=== PATIENT | male | born 1995 | race African-American/Black ===

== ENCOUNTER 2019-10-05 18:48 | Emergency (ER) | payer OTHER ==
[~2019-10-05] VITALS: Ht 180.3 cm; Wt 81.7 kg
[2019-10-05 18:51] VITALS: BP 132/90
[2019-10-05] MEDS ORDERED: AUGMENTIN 875-1 EACH PO (19:24)
[2019-10-05] MEDS ORDERED: TORADOL 10 MG T10 MG PO (19:31)
== END 2019-10-05 19:37 | disposition home or self-care (01) ==
LOC: ER 18:48
DX: K02.9 Dental caries, unspecified (principal); F17.210 Nicotine dependence, cigarettes, uncomplicated